=== PATIENT | male | born 1965 | race American Indian/Alaskan Native ===

== ENCOUNTER 2018-05-01 17:29 | Inpatient (IN) | payer MEDICARE ==
[2018-05-01] MEDS ORDERED: ZOFRAN ODT PO PRN (18:09)
[2018-05-01] MEDS ORDERED: DULCOLAX PR PRN (18:09)
[2018-05-01] MEDS ORDERED: IMODIUM PO PRN (18:09)
[2018-05-01] MEDS ORDERED: ALUM-MAG HYDROX-SIMETH 200-200-20MG/5ML PO PRN (18:09)
[2018-05-01] MEDS ORDERED: ZOFRAN IV PRN ×2 (18:09→22:41)
[2018-05-01] MEDS ORDERED: TYLENOL PO PRN ×2 (18:09→22:41)
[2018-05-01] MEDS ORDERED: SENOKOT PO PRN (18:09)
[2018-05-01] MEDS ORDERED: ROBAXIN PO PRN (18:34)
[2018-05-01] MEDS ORDERED: VISTARIL PO PRN (18:34)
[2018-05-01] MEDS ORDERED: VISTARIL IM PRN (18:34)
[2018-05-01] MEDS ORDERED: REQUIP PO PRN (18:34)
[2018-05-01] MEDS ORDERED: ATIVAN IV PRN (18:36)
[2018-05-01] MEDS ORDERED: BENTYL PO PRN (18:36)
[2018-05-01 18:51] LABS: Amphetamine Screen,Urine PRESUMPTIVE NEGATIVE; Benzodiazepines Screen,Urine PRESUMPTIVE NEGATIVE; Cocaine Screen,Urine PRESUMPTIVE NEGATIVE; Methadone Screen,Urine PRESUMPTIVE NEGATIVE; Opiate Screen,Urine PRESUMPTIVE NEGATIVE
[2018-05-01 19:03] LABS: Cannabinoid Screen,Urine PRESUMPTIVE POSITIVE
[2018-05-01] MEDS ORDERED: ATIVAN IV ONE (19:09)
[2018-05-01 20:00] LABS: Hematocrit 43.1 % (35.5-45.6); Hemoglobin 14.4 gm/dl (11.8-15.2); Mean Corpuscular HGB Conc 33 % (32-34); Mean Corpuscular Hemoglobin 31 pg (28-32); Mean Corpuscular Volume 93 fl (84-94); Platelet Count 262 K/mm3 (140-440); Red Blood Count 4.65 M/mm3 (3.65-5.03); Red Cell Distribution Width 13.8 % (13.2-15.2)
[2018-05-01] MEDS ORDERED: HABITROL TD PRN (20:00)
[2018-05-01 20:11] LABS: INR 0.87 (0.87-1.13)
[2018-05-01 20:17] LABS: Alanine Aminotransferase 19 units/L (7-56); Albumin 4.2 g/dL (3.9-5); BUN/Creatinine Ratio 17; Blood Urea Nitrogen 12 mg/dL (9-20); Calcium 9.1 mg/dL (8.4-10.2); Hemolysis Index 20
[2018-05-01] MEDS: NACL 0.9% 1000 ML 1,000 ML IV SCH (20:49)
[2018-05-01] MEDS: ATIVAN PO SCH (21:30)
[2018-05-01] MEDS ORDERED: VITAMIN B-1 100 MG, FOLVITE 1 MG, INFUVITE 10 ML in LACTATED RINGERS 1,000 ML IV ONE (22:00)
[2018-05-01] MEDS: PEPCID IV SCH (22:10)
--- NOTE | 2018-05-01 22:28 | Event Note ---
Date: 05/01/18 See dictated history and physical in the reports
[2018-05-01] MEDS ORDERED: SODIUM CHLORIDE FLUSH SYRINGE 10 ML IV PRN (22:41)
[2018-05-01 23:20] LABS: Bacteria,Urine 1+ /HPF (Negative); Bilirubin,Urine NEG (Negative); Blood,Urine NEG (Negative); Color,Urine Yellow (Yellow); Mucus,Urine 2+ /HPF
--- NOTE | 2018-05-01 23:52 | History and Physical Report ---
CHIEF COMPLAINT: Alcohol and cocaine withdrawal. HISTORY OF PRESENT ILLNESS: A 52-year-old black male with history of ETOH dependence and cocaine dependence, being admitted directly from home for ETOH withdrawal and cocaine withdrawal. The patient has been having cold hands and clammy to touch and tremors in the hands. The patient is moderately fidgety and restless, shifting position frequently. Also, tearing of the eyes frequently and sweating and frequent yawning. The patient is a very poor historian. The patient is drowsy and under the influence of Ativan given in the hospital. The patient could not give much history. As per the chart, the patient is heavily alcohol dependent and cocaine dependent. PAST MEDICAL HISTORY: Not available. PAST SURGICAL HISTORY: Not available. FAMILY HISTORY: Not available. CURRENT MEDICATIONS: Not available. REVIEW OF SYSTEMS: The patient unable to give any information. PHYSICAL EXAMINATION: GENERAL: Middle-aged male, drowsy and lethargic. VITAL SIGNS: Significant for blood pressure of 136/86, temperature 98, pulse is 70, respirations are 16. HEENT: Unremarkable. Pupils equal and reactive. NECK: Supple, no lymphadenopathy, no thyromegaly. LUNGS: Clear to auscultation and percussion. Good air entry. CARDIOVASCULAR: S1, S2 heard. No gallop, no murmur, no rub. Apical impulse in left fifth intercostal space and midclavicular line. ABDOMEN: Soft and benign. No hepatosplenomegaly. No guarding. No rigidity. Hernial orifices are normal. EXTREMITIES: Good pedal pulses. CENTRAL NERVOUS SYSTEM: Alert, but very drowsy and unable to answer questions. Falls into sleep. When woken up, the patient answers questions appropriately, but very intermittent in nature. Moves all 4 extremities. Cranial nerves are normal. LABORATORY DATA: Significant for white count of 4500, hemoglobin of 14.4 and 43.1, platelet count of 262,000. Sodium is 139, potassium is 4.1, chloride is 99.8, BUN and creatinine 12 and 0.7. Lipase is 66. Urine drug screen is positive for marijuana. Cocaine was negative. ASSESSMENT AND PLAN: 1. Ethyl alcohol withdrawal. The patient in dependence. The patient initiated on multivitamin tablet daily, thiamine tablet daily, folic acid daily and trazodone, nicotine patch and Ativan 2 mg stat IV p.r.n. for seizures. IV fluids, normal saline at 100 mL an hour. Also, clonidine and methocarbamol. Hydroxyzine not initiated. 2. Cocaine dependence and cocaine withdrawal. The patient to be continued on telemetry for 24 hours, clonidine 0.1 every 4 hours. Hold if BP less than 90/60. Methocarbamol 750 mg every 6 hours p.r.n. for muscle aches. Ropinirole 0.5 mg 1 tablet orally every 12 hours p.r.n. for restless legs. Hydroxyzine 50 mg 1 tablet q. 6 hours p.r.n. mild anxiety and 50 mg IM every 6 hours p.r.n. for breakthrough anxiety. Lorazepam if necessary. 3. Deep venous thrombosis prophylaxis, Lovenox 40 mg subcutaneous daily. In summary, the patient has ETOH withdrawal, cocaine withdrawal and marijuana withdrawal . Also nicotine dependence. Nicoderm patch initiated. JOB# [id number] VSM/NTS
[2018-05-02] MEDS: CATAPRES PO SCH ×8 (04:49→20:56)
[2018-05-02] MEDS: DESYREL PO SCH ×3 (04:59→23:16)
[2018-05-02] MEDS: ATIVAN PO SCH ×6 (05:36→23:35)
[2018-05-02] MEDS: THERAGRAN Tab PO SCH (09:34)
[2018-05-02] MEDS: VITAMIN B-1 PO SCH (09:34)
[2018-05-02] MEDS: FOLVITE PO SCH (09:34)
[2018-05-02] MEDS: PEPCID IV SCH ×2 (09:35→23:12)
[2018-05-02] MEDS: SODIUM CHLORIDE FLUSH SYRINGE 10 ML IV SCH ×2 (09:38→23:16)
[2018-05-02] MEDS ORDERED: VITAMIN B-1 100 MG, FOLVITE 1 MG, INFUVITE 10 ML in NACL 0.9% 1000 ML 1,000 ML IV ONE (10:00)
[2018-05-02 10:56] LABS: Eosinophils # (Auto) 0.2 K/mm3 (0.0-0.4); Eosinophils % (Auto) 6.1 % (0.0-4.3); Hemoglobin 14.7 gm/dl (11.8-15.2); Lymphocytes # (Auto) 0.9 K/mm3 (1.2-5.4); Lymphocytes % (Auto) 21.9 % (13.4-35.0); Mean Corpuscular HGB Conc 33 % (32-34); Mean Corpuscular Hemoglobin 31 pg (28-32); Mean Corpuscular Volume 94 fl (84-94); Monocytes # (Auto) 0.5 K/mm3 (0.0-0.8); Monocytes % (Auto) 11.8 % (0.0-7.3); Platelet Count 269 K/mm3 (140-440); Red Blood Count 4.79 M/mm3 (3.65-5.03); Red Cell Distribution Width 14.1 % (13.2-15.2)
[2018-05-02 11:18] LABS: Alanine Aminotransferase 15 units/L (7-56); Albumin 3.8 g/dL (3.9-5); BUN/Creatinine Ratio 11; Blood Urea Nitrogen 8 mg/dL (9-20); Calcium 8.9 mg/dL (8.4-10.2); Hemolysis Index 14
[2018-05-02] MEDS: NACL 0.9% 1000 ML 1,000 ML IV SCH ×2 (12:05→23:11)
--- NOTE | 2018-05-02 17:01 | Progress Note ---
Assessment and Plan Assessment and plan: Alcohol withdrawal Hospitalist Physical - Physical exam Narrative exam: Constitutional; Not in acute distress HEENT: Atraumatic, normocephalic Neck: supple, no lymphadenopathy, JVD or thyromegaly Lungs: Clear to auscultation, bilaterally, no wheeze, no crackles CVS; S1-S2 regular, no murmurs, rubs or gallop, Abdomen; soft, non-tender, non distended,bowel sounds are normal, Musculoskeletal; Splint over both knees, dressing over knees [employer] HEAVY: Drowsy from sedation, ,oriented x3, no focal neurological signs - Constitutional Vitals: Temp Pulse Resp BP Pulse Ox 98.2 F 66 16 112/68 100 05/02/18 16:00 05/02/18 16:35 05/02/18 16:00 05/02/18 16:35 05/02/18 12:05 Results - Labs CBC & Chem 7: 05/02/18 10:40 05/02/18 10:40 Labs: Laboratory Last Values WBC 4.1 K/mm3 (4.5-11.0) L 05/02/18 10:40 RBC 4.79 M/mm3 (3.65-5.03) 05/02/18 10:40 Hgb 14.7 gm/dl (11.8-15.2) 05/02/18 10:40 Hct 45.0 % (35.5-45.6) 05/02/18 10:40 MCV 94 fl (84-94) 05/02/18 10:40 MCH 31 pg (28-32) 05/02/18 10:40 MCHC 33 % (32-34) 05/02/18 10:40 RDW 14.1 % (13.2-15.2) 05/02/18 10:40 Plt Count 269 K/mm3 (140-440) 05/02/18 10:40 Lymph % (Auto) 21.9 % (13.4-35.0) 05/02/18 10:40 [place] % (Auto) 11.8 % (0.0-7.3) H 05/02/18 10:40 Eos % (Auto) 6.1 % (0.0-4.3) H 05/02/18 10:40 Baso % (Auto) 1.0 % (0.0-1.8) 05/02/18 10:40 Lymph # 0.9 K/mm3 (1.2-5.4) L 05/02/18 10:40 [place] # 0.5 K/mm3 (0.0-0.8) 05/02/18 10:40 Eos # 0.2 K/mm3 (0.0-0.4) 05/02/18 10:40 Baso # 0.0 K/mm3 (0.0-0.1) 05/02/18 10:40 Seg Neutrophils % 59.2 % (40.0-70.0) 05/02/18 10:40 Seg Neutrophils # 2.4 K/mm3 (1.8-7.7) 05/02/18 10:40 PT 12.3 Sec. (12.2-14.9) 05/01/18 19:40 INR 0.87 (0.87-1.13) 05/01/18 19:40 Sodium 139 mmol/L (137-145) 05/02/18 10:40 Potassium 4.8 mmol/L (3.6-5.0) 05/02/18 10:40 Chloride 105.9 mmol/L (98-107) 05/02/18 10:40 Carbon Dioxide 25 mmol/L (22-30) 05/02/18 10:40 Anion Gap 13 mmol/L 05/02/18 10:40 BUN 8 mg/dL (9-20) L 05/02/18 10:40 Creatinine 0.7 mg/dL (0.8-1.5) L 05/02/18 10:40 Estimated GFR > 60 ml/min 05/02/18 10:40 BUN/Creatinine Ratio 11 % 05/02/18 10:40 Glucose 67 mg/dL (75-100) L 05/02/18 10:40 Hemoglobin A1c 5.7 % (4-6) 05/01/18 23:11 Calcium 8.9 mg/dL (8.4-10.2) 05/02/18 10:40 Total Bilirubin 0.50 mg/dL (0.1-1.2) 05/02/18 10:40 AST 17 units/L (5-40) 05/02/18 10:40 ALT 15 units/L (7-56) 07/18/18 10:40 Alkaline Phosphatase 66 units/L (35-129) 05/02/18 10:40 Total Protein 5.7 g/dL (6.3-8.2) L 05/02/18 10:40 Albumin 3.8 g/dL (3.9-5) L 05/02/18 10:40 Albumin/Globulin Ratio 2.0 % 05/02/18 10:40 Amylase 123 units/L (27-131) 05/01/18 19:40 Lipase 66 units/L (13-60) H 05/01/18 19:40 Urine Color Yellow (Yellow) 05/01/18 18:13 Urine Turbidity Clear (Clear) 05/01/18 18:13 Urine pH 5.0 (5.0-7.0) 05/01/18 18:13 Ur Specific [place] 1.021 (1.003-1.030) 05/01/18 18:13 Urine Protein 100 mg/dl mg/dL (Negative) 05/01/18 18:13 Urine Glucose (UA) Neg mg/dL (Negative) 05/01/18 18:13 Urine Ketones 80 mg/dL (Negative) 05/01/18 18:13 Urine Blood Neg (Negative) 05/01/18 18:13 Urine Nitrite Pos (Negative) 05/01/18 18:13 Urine Bilirubin Neg (Negative) 05/01/18 18:13 Urine Urobilinogen 2.0 mg/dL (<2.0) 05/01/18 18:13 Ur Leukocyte Esterase Lg (Negative) 05/01/18 18:13 Urine WBC (Auto) 125.0 /HPF (0.0-6.0) H 05/01/18 18:13 Urine RBC (Auto) 5.0 /HPF (0.0-6.0) 05/01/18 18:13 U Epithel Cells (Auto) 5.0 /HPF (0-13.0) 05/01/18 18:13 Urine Bacteria (Auto) 1+ /HPF (Negative) 05/01/18 18:13 Urine Mucus 2+ /HPF 05/01/18 18:13 Urine Opiates Screen Presumptive negative 05/01/18 Unknown Urine Methadone Screen Presumptive negative 05/01/18 Unknown Ur Barbiturates Screen Presumptive negative 05/01/18 Unknown Ur Phencyclidine Scrn Presumptive negative 05/01/18 Unknown Ur Amphetamines Screen Presumptive negative 05/01/18 Unknown U Benzodiazepines Scrn Presumptive negative 05/01/18 Unknown Urine Cocaine Screen Presumptive negative 05/01/18 Unknown U Marijuana (THC) Screen Presumptive positive 05/01/18 Unknown Drugs of Abuse Note Disclamer 05/01/18 Unknown Plasma/Serum Alcohol < 0.01 % (0-0.07) 05/01/18 19:40
[2018-05-03] MEDS: CATAPRES PO SCH ×6 (00:05→20:57)
[2018-05-03] MEDS: ATIVAN PO SCH ×5 (06:22→21:49)
[2018-05-03] MEDS: NACL 0.9% 1000 ML 1,000 ML IV SCH ×2 (09:12→23:39)
[2018-05-03] MEDS: VITAMIN B-1 PO SCH (09:14)
[2018-05-03] MEDS: SODIUM CHLORIDE FLUSH SYRINGE 10 ML IV SCH ×2 (09:14→21:50)
[2018-05-03] MEDS: FOLVITE PO SCH (09:14)
[2018-05-03] MEDS: THERAGRAN Tab PO SCH (09:14)
[2018-05-03] MEDS: PEPCID IV SCH ×2 (09:14→21:49)
[2018-05-03] MEDS ORDERED: BENADRYL IV PRN (17:08)
[2018-05-03] MEDS: DESYREL PO SCH (21:49)
[2018-05-03] MEDS: KENALOG TP SCH (21:49)
[2018-05-04] MEDS: CATAPRES PO SCH ×4 (01:50→12:20)
--- NOTE | 2018-05-04 05:40 | Progress Note ---
Hospitalist Physical - Constitutional Vitals: Temp Pulse Resp BP Pulse Ox 97.5 F L 53 L 18 89/51 98 05/04/18 00:12 05/04/18 01:50 05/04/18 00:12 05/04/18 01:50 05/03/18 22:00 Results - Labs CBC & Chem 7: 05/02/18 10:40 05/02/18 10:40 Labs: Laboratory Last Values WBC 4.1 K/mm3 (4.5-11.0) L 05/02/18 10:40 RBC 4.79 M/mm3 (3.65-5.03) 05/02/18 10:40 Hgb 14.7 gm/dl (11.8-15.2) 05/02/18 10:40 Hct 45.0 % (35.5-45.6) 05/02/18 10:40 MCV 94 fl (84-94) 05/02/18 10:40 MCH 31 pg (28-32) 05/02/18 10:40 MCHC 33 % (32-34) 05/02/18 10:40 RDW 14.1 % (13.2-15.2) 05/02/18 10:40 Plt Count 269 K/mm3 (140-440) 05/02/18 10:40 Lymph % (Auto) 21.9 % (13.4-35.0) 05/02/18 10:40 [place] % (Auto) 11.8 % (0.0-7.3) H 05/02/18 10:40 Eos % (Auto) 6.1 % (0.0-4.3) H 05/02/18 10:40 Baso % (Auto) 1.0 % (0.0-1.8) 05/02/18 10:40 Lymph # 0.9 K/mm3 (1.2-5.4) L 05/02/18 10:40 [place] # 0.5 K/mm3 (0.0-0.8) 05/02/18 10:40 Eos # 0.2 K/mm3 (0.0-0.4) 05/02/18 10:40 Baso # 0.0 K/mm3 (0.0-0.1) 05/02/18 10:40 Seg Neutrophils % 59.2 % (40.0-70.0) 05/02/18 10:40 Seg Neutrophils # 2.4 K/mm3 (1.8-7.7) 05/02/18 10:40 PT 12.3 Sec. (12.2-14.9) 05/01/18 19:40 INR 0.87 (0.87-1.13) 05/01/18 19:40 Sodium 139 mmol/L (137-145) 05/02/18 10:40 Potassium 4.8 mmol/L (3.6-5.0) 05/02/18 10:40 Chloride 105.9 mmol/L (98-107) 05/02/18 10:40 Carbon Dioxide 25 mmol/L (22-30) 05/02/18 10:40 Anion Gap 13 mmol/L 05/02/18 10:40 BUN 8 mg/dL (9-20) L 05/02/18 10:40 Creatinine 0.7 mg/dL (0.8-1.5) L 05/02/18 10:40 Estimated GFR > 60 ml/min 05/02/18 10:40 BUN/Creatinine Ratio 11 % 05/02/18 10:40 Glucose 67 mg/dL (75-100) L 05/02/18 10:40 Hemoglobin A1c 5.7 % (4-6) 05/01/18 23:11 Calcium 8.9 mg/dL (8.4-10.2) 05/02/18 10:40 Total Bilirubin 0.50 mg/dL (0.1-1.2) 05/02/18 10:40 AST 17 units/L (5-40) 05/02/18 10:40 ALT 15 units/L (7-56) 05/02/18 10:40 Alkaline Phosphatase 66 units/L (35-129) 05/02/18 10:40 Total Protein 5.7 g/dL (6.3-8.2) L 05/02/18 10:40 Albumin 3.8 g/dL (3.9-5) L 05/02/18 10:40 Albumin/Globulin Ratio 2.0 % 05/02/18 10:40 Amylase 123 units/L (27-131) 05/01/18 19:40 Lipase 66 units/L (13-60) H 05/01/18 19:40 Urine Color Yellow (Yellow) 05/01/18 18:13 Urine Turbidity Clear (Clear) 05/01/18 18:13 Urine pH 5.0 (5.0-7.0) 05/01/18 18:13 Ur Specific [place] 1.021 (1.003-1.030) 05/01/18 18:13 Urine Protein 100 mg/dl mg/dL (Negative) 05/01/18 18:13 Urine Glucose (UA) Neg mg/dL (Negative) 05/01/18 18:13 Urine Ketones 80 mg/dL (Negative) 05/01/18 18:13 Urine Blood Neg (Negative) 05/01/18 18:13 Urine Nitrite Pos (Negative) 05/01/18 18:13 Urine Bilirubin Neg (Negative) 05/01/18 18:13 Urine Urobilinogen 2.0 mg/dL (<2.0) 05/01/18 18:13 Ur Leukocyte Esterase Lg (Negative) 05/01/18 18:13 Urine WBC (Auto) 125.0 /HPF (0.0-6.0) H 05/01/18 18:13 Urine RBC (Auto) 5.0 /HPF (0.0-6.0) 05/01/18 18:13 U Epithel Cells (Auto) 5.0 /HPF (0-13.0) 05/01/18 18:13 Urine Bacteria (Auto) 1+ /HPF (Negative) 05/01/18 18:13 Urine Mucus 2+ /HPF 05/01/18 18:13 Urine Opiates Screen Presumptive negative 05/01/18 Unknown Urine Methadone Screen Presumptive negative 05/01/18 Unknown Ur Barbiturates Screen Presumptive negative 05/01/18 Unknown Ur Phencyclidine Scrn Presumptive negative 05/01/18 Unknown Ur Amphetamines Screen Presumptive negative 05/01/18 Unknown U Benzodiazepines Scrn Presumptive negative 05/01/18 Unknown Urine Cocaine Screen Presumptive negative 05/01/18 Unknown U Marijuana (THC) Screen Presumptive positive 05/01/18 Unknown Drugs of Abuse Note Disclamer 05/01/18 Unknown Plasma/Serum Alcohol < 0.01 % (0-0.07) 05/01/18 19:40
[2018-05-04] MEDS: ATIVAN PO SCH (06:45)
[2018-05-04] MEDS: THERAGRAN Tab PO SCH (10:27)
[2018-05-04] MEDS: VITAMIN B-1 PO SCH (10:27)
[2018-05-04] MEDS: PEPCID IV SCH (10:27)
[2018-05-04] MEDS: FOLVITE PO SCH (10:27)
[2018-05-04] MEDS: KENALOG TP SCH (10:28)
[2018-05-04] MEDS: SODIUM CHLORIDE FLUSH SYRINGE 10 ML IV SCH (10:28)
[2018-05-04 11:48] VITALS: BP 102/62
[2018-05-04] MEDS ORDERED: LEVAQUIN PO SCH (14:00)
--- NOTE | 2018-05-04 15:05 | Discharge Summary ---
Providers - Providers Date of Admission: 05/01/18 18:28 Date of discharge: 05/04/18 Attending physician: KRISSY COLEMAN Primary care physician: HORTENCIA CALVILLO Hospitalization Condition: Fair Disposition: DC-01 TO HOME OR SELFCARE Core Measure Documentation - Palliative Care Palliative Care/ Comfort Measures: Not Applicable Exam - Constitutional Vitals: Temp Pulse Resp BP Pulse Ox 97.9 F 66 18 102/62 99 05/04/18 11:35 05/04/18 12:20 05/04/18 11:35 05/04/18 12:20 05/04/18 11:35 Plan Activity: advance as tolerated Diet: low fat, low cholesterol, low salt Additional Instructions: 1.Follow up with PCP or [facility] in 1 week. 2.Follow up at [facility] Follow up with: HORTENCIA CALVILLO MD [Primary Care Provider] - 7 Days Prescriptions: Ciprofloxacin HCl [Ciprofloxacin TAB] 500 mg PO BID #14 tablet Folic Acid [Folvite] 1 mg PO QDAY #30 tablet Multivitamin Tab [Multiple Vitamin TAB (Theragran)] 1 each PO QDAY #30 tablet Thiamine [Vitamin B-1] 100 mg PO QDAY #30 tablet Triamcinolone 0.5% [Kenalog 0.5% CREAM] 1 applic TP BID 7 Days #1 tube
== END 2018-05-04 15:38 | disposition home or self-care (01) | DRG 897 ==
LOC: UNDOADMIN 17:29 → 2B-ACE 17:29 → MSU 18:28
PROVIDERS: ADMIT Internal Medicine; ATTEND Internal Medicine
DX: F10.239 Alcohol dependence with withdrawal, unspecified (principal); F14.23 Cocaine dependence with withdrawal; F17.200 Nicotine dependence, unspecified, uncomplicated; F12.288 Cannabis dependence with other cannabis-induced disorder; Y90.0 Blood alcohol level of less than 20 mg/100 ml
CPT/HCPCS: 36415; 80053; 80307; 80320; 81001; 82150; 83036; 83690; 85025; 85027; 85610; 93005; 93010; G0480; J1200; J2060; J2405; J3410; J3411; J7030; J7120; Q0162; Q0177

== ENCOUNTER 2018-06-09 21:14 | Emergency (ER) | payer MEDICARE ==
[2018-06-09 23:10] LABS: Basophils % (Auto) 0.8 % (0.0-1.8); Eosinophils # (Auto) 0.4 K/mm3 (0.0-0.4); Eosinophils % (Auto) 7.9 % (0.0-4.3); Hematocrit 47.9 % (35.5-45.6); Hemoglobin 16.1 gm/dl (11.8-15.2); Lymphocytes % (Auto) 40.4 % (13.4-35.0); Mean Corpuscular HGB Conc 34 % (32-34); Mean Corpuscular Hemoglobin 31 pg (28-32); Mean Corpuscular Volume 93 fl (84-94); Monocytes # (Auto) 0.5 K/mm3 (0.0-0.8); Monocytes % (Auto) 10.6 % (0.0-7.3); Platelet Count 306 K/mm3 (140-440); Red Blood Count 5.15 M/mm3 (3.65-5.03); Red Cell Distribution Width 14.4 % (13.2-15.2)
[2018-06-09 23:21] LABS: BUN/Creatinine Ratio 17; Blood Urea Nitrogen 15 mg/dL (9-20); Calcium 9.8 mg/dL (8.4-10.2); Hemolysis Index 21
[2018-06-10 00:21] LABS: Bacteria,Urine 1+ /HPF (Negative); Bilirubin,Urine NEG (Negative); Blood,Urine NEG (Negative); Color,Urine Yellow (Yellow); Mucus,Urine 2+ /HPF; Protein,Urine <15 mg/dL mg/dL (Negative); Urobilinogen,Urine < 2.0 mg/dL (<2.0)
[2018-06-10 00:59] LABS: Amphetamine Screen,Urine PRESUMPTIVE NEGATIVE; Methadone Screen,Urine PRESUMPTIVE NEGATIVE; Opiate Screen,Urine PRESUMPTIVE NEGATIVE
--- NOTE | 2018-06-10 01:10 | Emergency Department Report ---
HPI - General Chief Complaint: Psych Time Seen by Provider: 06/10/18 00:57 - HPI HPI: Kamran 16 The patient is a 52-year-old male presenting with chief complaint of suicidal ideation. The patient states today he "almost gave out." The patient states she's had suicidal ideation for one month. Patient states his plan has been to overdose on crack. Patient denies any active attempts at harming himself. Patient also admits to auditory hallucinations for the past 2 weeks with voices telling him to "go ahead and do it." Location: Mental state Duration: Month Quality: Suicidal Severity: Severe Modifying factors: [see above] Context: [see above] Mode of transportation: [not driving] ED Past Medical Hx - Past Medical History Previous Medical History?: Yes Hx Asthma: Yes (Diagnosed 1967) Additional medical history: eczema - Surgical History Past Surgical History?: No - Family History Family history: no significant - Social History Smoking Status: Current Every Day Smoker (1/2 pack per day) Substance Use Type: Alcohol (occasional), Cocaine (crack) - Medications Home Medications: Home Medications Medication Instructions Recorded Confirmed Last Taken Type Ciprofloxacin HCl [Ciprofloxacin 500 mg PO BID #14 tablet 05/04/18 Unknown Rx TAB] Folic Acid [Folvite] 1 mg PO QDAY #30 tablet 05/04/18 Unknown Rx Multivitamin Tab [Multiple Vitamin 1 each PO QDAY #30 tablet 05/04/18 Unknown Rx TAB (Theragran)] Thiamine [Vitamin B-1] 100 mg PO QDAY #30 tablet 05/04/18 Unknown Rx Triamcinolone 0.5% [Kenalog 0.5% 1 applic TP BID 7 Days #1 tube 05/04/18 Unknown Rx CREAM] ED Review of Systems ROS: Stated complaint: DETOX Other details as noted in HPI Constitutional: no symptoms reported Eyes: denies: eye pain ENT: denies: throat pain Respiratory: no symptoms reported Cardiovascular: denies: chest pain Endocrine: no symptoms reported Gastrointestinal: denies: abdominal pain Genitourinary: denies: dysuria Musculoskeletal: denies: back pain Neurological: denies: headache Psychiatric: auditory hallucinations, suicidal thoughts Physical Exam - Physical Exam Vital Signs: Vital Signs 06/09/18 06/09/18 21:20 22:00 Temperature 98.1 F 98.1 F Pulse Rate 76 62 Respiratory 18 18 Rate Blood Pressure 121/80 121/80 O2 Sat by Pulse 99 99 Oximetry Physical Exam: GENERAL: The patient is well-developed well-nourished male lying on stretcher not appearing to be in acute distress. [] HEENT: Normocephalic. Atraumatic. Extraocular motions are intact. Patient has moist mucous membranes. NECK: Supple. Trachea midline CHEST/LUNGS: Clear to auscultation. There is no respiratory distress noted. HEART/CARDIOVASCULAR: Regular. There is no tachycardia. There is no gallop rub or murmur. ABDOMEN: Abdomen is soft, nontender. Patient has normal bowel sounds. There is no abdominal distention. SKIN: There is no rash. There is no edema. There is no diaphoresis. NEURO: The patient is awake, alert, and oriented. The patient is cooperative. The patient has normal speech MUSCULOSKELETAL: There is no evidence of acute injury. ED Course Vital Signs 06/09/18 06/09/18 21:20 22:00 Temperature 98.1 F 98.1 F Pulse Rate 76 62 Respiratory 18 18 Rate Blood Pressure 121/80 121/80 O2 Sat by Pulse 99 99 Oximetry ED Medical Decision Making - Lab Data Result diagrams: 06/09/18 22:35 06/09/18 22:35 Laboratory Tests 06/09/18 06/09/18 06/09/18 22:35 22:35 22:35 WBC RBC Hgb Hct MCV MCH MCHC RDW Plt Count Lymph % (Auto) [place] % (Auto) Eos % (Auto) Baso % (Auto) Lymph # [place] # Eos # Baso # Seg Neutrophils % Seg Neutrophils # Sodium 141 Potassium 4.1 Chloride 97.2 L Carbon Dioxide 32 H Anion Gap 16 BUN 15 Creatinine 0.9 Estimated GFR > 60 BUN/Creatinine Ratio 17 Glucose 88 Calcium 9.8 Urine Color Urine Turbidity Urine pH Ur Specific [place] Urine Protein Urine Glucose (UA) Urine Ketones Urine Blood Urine Nitrite Urine Bilirubin Urine Urobilinogen Ur Leukocyte Esterase Urine WBC (Auto) Urine RBC (Auto) U Epithel Cells (Auto) Urine Bacteria (Auto) Urine Mucus Salicylates < 0.3 L Urine Opiates Screen Urine Methadone Screen Acetaminophen < 5.0 L Ur Barbiturates Screen Ur Phencyclidine Scrn Ur Amphetamines Screen Plasma/Serum Alcohol 06/09/18 06/09/18 06/10/18 22:35 22:35 00:03 WBC 5.0 RBC 5.15 H Hgb 16.1 H Hct 47.9 H MCV 93 MCH 31 MCHC 34 RDW 14.4 Plt Count 306 Lymph % (Auto) 40.4 H [place] % (Auto) 10.6 H Eos % (Auto) 7.9 H Baso % (Auto) 0.8 Lymph # 2.0 [place] # 0.5 Eos # 0.4 Baso # 0.0 Seg Neutrophils % 40.3 Seg Neutrophils # 2.0 Sodium Potassium Chloride Carbon Dioxide Anion Gap BUN Creatinine Estimated GFR BUN/Creatinine Ratio Glucose Calcium Urine Color Yellow Urine Turbidity Clear Urine pH 5.0 Ur Specific [place] 1.020 Urine Protein <15 mg/dl Urine Glucose (UA) Neg Urine Ketones Neg Urine Blood Neg Urine Nitrite Neg Urine Bilirubin Neg Urine Urobilinogen < 2.0 Ur Leukocyte Esterase Neg Urine WBC (Auto) 2.0 Urine RBC (Auto) 3.0 U Epithel Cells (Auto) 1.0 Urine Bacteria (Auto) 1+ Urine Mucus 2+ Salicylates Urine Opiates Screen Urine Methadone Screen Acetaminophen Ur Barbiturates Screen Ur Phencyclidine Scrn Ur Amphetamines Screen Plasma/Serum Alcohol < 0.01 06/10/18 00:03 WBC RBC Hgb Hct MCV MCH MCHC RDW Plt Count Lymph % (Auto) [place] % (Auto) Eos % (Auto) Baso % (Auto) Lymph # [place] # Eos # Baso # Seg Neutrophils % Seg Neutrophils # Sodium Potassium Chloride Carbon Dioxide Anion Gap BUN Creatinine Estimated GFR BUN/Creatinine Ratio Glucose Calcium Urine Color Urine Turbidity Urine pH Ur Specific [place] Urine Protein Urine Glucose (UA) Urine Ketones Urine Blood Urine Nitrite Urine Bilirubin Urine Urobilinogen Ur Leukocyte Esterase Urine WBC (Auto) Urine RBC (Auto) U Epithel Cells (Auto) Urine Bacteria (Auto) Urine Mucus Salicylates Urine Opiates Screen Presumptive negative Urine Methadone Screen Presumptive negative Acetaminophen Ur Barbiturates Screen Presumptive negative Ur Phencyclidine Scrn Presumptive negative Ur Amphetamines Screen Presumptive negative Plasma/Serum Alcohol - Differential Diagnosis suicidal ideation, cocaine abuse Critical care attestation.: If time is entered above; I have spent that time in minutes in the direct care of this critically ill patient, excluding procedure time. ED Disposition Clinical Impression: Suicidal ideation, Auditory hallucinations, Cocaine abuse Disposition: DC/TX-65 PSY HOSP/PSY UNIT Is pt being admited?: No Does the pt Need Aspirin: No Condition: Serious Referrals: PRIMARY CARE, [Primary Care Provider] - 3-5 Days Time of Disposition: 01:12 (awaiting acceptance)
[2018-06-10 01:16] LABS: Benzodiazepines Screen,Urine PRESUMPTIVE POSITIVE; Cannabinoid Screen,Urine PRESUMPTIVE POSITIVE; Cocaine Screen,Urine PRESUMPTIVE POSITIVE
[2018-06-10 13:23] VITALS: BP 114/72
== END 2018-06-10 13:21 ==
LOC: ED 21:14
DX: R45.851 Suicidal ideations (principal); R44.0 Auditory hallucinations; F14.10 Cocaine abuse, uncomplicated; J45.909 Unspecified asthma, uncomplicated; F17.210 Nicotine dependence, cigarettes, uncomplicated; Z79.899 Other long term (current) drug therapy
CPT/HCPCS: 36415; 80048; 80307; 81001; 85025; 99285; G0480; 80320